=== PATIENT | female | born 1940 | race Caucasian/White ===

== ENCOUNTER 2021-08-08 19:05 | Emergency (ER) | payer BC, MEDICARE ==
--- NOTE | 2021-08-08 21:00 | CR ---
[id number] RAD/RAD Chest PA And Lateral EXAM: RAD Chest PA And Lateral INDICATION: FINE CRACKLES COMPARISON: None. DISCUSSION: Cardiomediastinal silhouette is normal in size and contour. No infiltrate, effusion, pneumothorax, or edema. Pulmonary hyperinflation. Old right-sided rib fractures. IMPRESSION: No acute cardiopulmonary abnormality. Christopher Padilla DO 08/08/210 Thank you for allowing us to participate in the care of your patient.
[2021-08-08 21:15] VITALS: BP 128/76; PULSE 74
[2021-08-08 21:30] LABS: ANION GAP 15.7 mmol/L (5-15); CHLORIDE,CL 103 mmol/L (98-107); SODIUM,NA 139 mmol/L (136-145)
--- NOTE | 2021-08-08 21:47 | EDM.PDOC ---
ED HPI GENERAL MEDICAL PROBLEM - General Chief Complaint: Respiratory Problem Stated Complaint: Covid Symptoms Time Seen by Provider: 08/08/21 20:15 Source of Information: Reports: Patient History Limitations: Reports: No Limitations - History of Present Illness INITIAL COMMENTS - FREE TEXT/NARRATIVE: Patient presents concerned she may have Covid. Yesterday she had a tickle in her throat. Today throat is sore and she has a cough. No fever, vomiting, aches, headache, chest pain, or new dyspnea. - Related Data Allergies Allergy/AdvReac Type Severity Reaction Status Date / Time ciprofloxacin Allergy Swelling Verified 08/08/21 19:31 Penicillins Allergy Rash Verified 08/08/21 19:31 Home Meds: Home Meds . [No Known Home Meds] 01/03/15 [History] Social & Family History - Tobacco Use Tobacco Use Status *Q: Never Tobacco User - Recreational Drug Use Recreational Drug Use: No ED ROS GENERAL - Review of Systems Review Of Systems: See Below Constitutional: Denies: Fever, Chills, Malaise, Weakness HEENT: Reports: Throat Pain. Denies: Ear Pain, Vision Change Respiratory: Reports: Shortness of Breath (chronic with exertion), Cough Cardiovascular: Denies: Chest Pain, Lightheadedness, Syncope GI/Abdominal: Denies: Abdominal Pain, Constipation, Diarrhea, Vomiting : Denies: Dysuria, Flank Pain Musculoskeletal: Denies: Neck Pain, Shoulder Pain, Arm Pain, Back Pain Skin: Denies: Cyanosis, Jaundice, Mottled, Pallor, Diaphoresis Neurological: Denies: Confusion, Dizziness, Headache, Seizure, Syncope, Trouble Speaking, Difficulty Walking Psychiatric: Denies: Agitation, Anxiety, Confusion ED EXAM, GENERAL - Physical Exam Exam: See Below Exam Limited By: No Limitations General Appearance: Alert, WD/WN, No Apparent Distress Eye Exam: Bilateral Eye: EOMI, Normal Inspection, PERRL Ears: Normal External Exam, Hearing Grossly Normal Nose: Normal Inspection, No Blood Throat/Mouth: Normal Inspection, Normal Lips, Normal Voice, No Airway Compromise Head: Atraumatic, Normocephalic Neck: Normal Inspection, Full Range of Motion Respiratory/Chest: No Respiratory Distress, Lungs Clear, Normal Breath Sounds Cardiovascular: Regular Rate, Rhythm, No Murmur GI/Abdominal: Normal Bowel Sounds, Soft, Non-Tender, No Organomegaly, No Distention Back Exam: Normal Inspection, Full Range of Motion. No: CVA Tenderness (L), CVA Tenderness (R) Extremities: Normal Inspection, Normal Range of Motion, Non-Tender, No Pedal Edema Neurological: Alert, Oriented, Normal Cognition, No Motor/Sensory Deficits Psychiatric: Normal Affect, Normal Mood Skin Exam: Warm, Dry, Intact, Normal Color, No Rash Course - Vital Signs Last Recorded V/S: Last Vital Signs Temp 97.1 F 08/08/21 21:16 Pulse 74 08/08/21 21:16 Resp 20 08/08/21 21:16 BP 128/76 08/08/21 21:16 Pulse Ox 95 08/08/21 21:16 - Orders/Labs/Meds Labs: Laboratory Tests 08/08/21 08/08/21 08/08/21 Range/Units 19:23 21:02 21:10 WBC 3.91 L (5.00-10.00) 10^3/uL RBC 4.79 (3.80-5.50) 10^6/uL Hgb 14.7 (12.0-16.0) g/dL Hct 43.6 (37.0-47.0) % MCV 91.0 (82.0-92.0) fL MCH 30.7 (27.0-31.0) pg MCHC 33.7 (32.0-36.0) g/dL RDW 12.8 (11.5-14.5) % Plt Count 198 (150-400) 10^3/uL MPV 9.6 (7.4-10.4) fL Immature Gran % (Auto) 0.3 (0.0-5.0) % Neut % (Auto) 62.8 (50.0-70.0) % Lymph % (Auto) 16.6 L (20.0-40.0) % [place] % (Auto) 17.4 H (2.0-8.0) % Eos % (Auto) 2.6 (1.0-3.0) % Baso % (Auto) 0.3 (0.0-1.0) % Neut # (Auto) 2.46 L (2.50-7.00) 10^3/uL Lymph # (Auto) 0.65 L (1.00-4.00) 10^3/uL [place] # (Auto) 0.68 (0.10-0.80) 10^3/uL Eos # (Auto) 0.10 (0.10-0.30) 10^3/uL Baso # (Auto) 0.01 (0.00-0.10) 10^3/uL Immature Gran # (Auto) 0.01 (0.00-0.50) 10^3/uL Sodium 139 (136-145) mmol/L Potassium 4.1 (3.5-5.1) mmol/L Chloride 103 (98-107) mmol/L Carbon Dioxide 24.4 (21.0-32.0) mmol/L Anion Gap 15.7 H (5-15) mmol/L BUN 12 (7-18) mg/dL Creatinine 0.66 (0.51-1.17) mg/dL Est Cr Clr Drug Dosing 62.19 mL/min Estimated GFR (MDRD) > 60 mL/min Glucose 110 (70-140) mg/dL Calcium 9.3 (8.7-10.3) mg/dL SARS CoV-2 RNA Rapid ELIDA Positive H (NEGATIVE) Meds: Medications Discontinued Medications Generic Name Dose Route Start Last Admin Trade Name Freq PRN Reason Stop Dose Admin Azithromycin 500 mg 08/08/21 21:40 Azithromycin 250 Mg Tab PO 08/08/21 21:41 ONETIME ONE - Re-Assessments/Exams Free Text/Narrative Re-Assessment/Exam: 08/08/21 21:52 Covid positive. Other labs okay. CXR shows a hint of left basilar infiltrate to my eye but report indicates no acute cardiopulmonary abnormalities. I will treat with Zithromax for possible pneumonia. Patient is requesting antibody infusion. This needs to be set up by a clinic provider as outpatient treatment. Discussed this with patient who is okay with that. She will try to see Reshma Cheung NP tomorrow if available. She currently doesn't have a local PCP established as her daughter is a doctor in [place] and she doesn't have any regular medications. Discussed findings and recommendations along with quarantine. Discharged to home in stable condition. Departure - Departure Time of Disposition: 21:41 Disposition: Home, Self-Care 01 Condition: Good Clinical Impression: COVID-19, Sore throat, Cough - Discharge Information Referrals: Eva Rodriguez MD [Primary Care Provider] - Forms: ED Department Discharge Additional Instructions: Drink at least 8 cups of water daily. Call [facility] tomorrow morning to set up appointment with Reshma Cheung if possible and to see what further recommendations they have for your covid, including the option of antibody infusion. If worsening, recheck in clinic or ER as needed. Sepsis Event Note (ED) - Evaluation Sepsis Screening Result: No Definite Risk - Focused Exam Vital Signs: Vital Signs Temp Pulse Resp BP Pulse Ox 08/08/21 21:16 97.1 F 74 20 128/76 95 08/08/21 21:14 97.1 F 74 20 128/76 95 08/08/21 19:25 97.9 F 73 20 149/94 H 98
[2021-08-08] MEDS: Azithromycin 250 MG Tab PO ONE (21:53)
== END 2021-08-08 22:00 | disposition home or self-care (01) ==
LOC: KA.ED 19:05
DX: U07.1 COVID-19 (principal); J02.9 Acute pharyngitis, unspecified; Z88.1 Allergy status to other antibiotic agents; Z88.0 Allergy status to penicillin
CPT/HCPCS: 71046; 80048; 85025; 99283; 99283-25; A9270-GY; U0002